=== PATIENT | female | born 1980 | race Two or more races ===

== ENCOUNTER → 2024-12-04 | Outpatient (CLI) | payer MEDICAID, SELFPAY ==
--- NOTE | 2024-12-04 13:00 | XR_ITS ---
Examination: Transvaginal ultrasound of the pelvis, complete Technique: Transvaginal sonographic images pelvis performed using taylor scale imaging Exam date and time: December 04, 2024 1335 hours INDICATIONS: History ovarian cystic disease FINDINGS: Uterus 7.1 cm endometrial stripe 0.8 cm Anterior uterine body area of fibroid degeneration 18 x 16 x 19 mm No intrauterine gestation Right ovary obscured by bowel gas Left ovary 2.0 cm arterial flow IMPRESSION: Small area of uterine fibroid degeneration as above, consider 6 month follow-up transvaginal pelvic sonography .
== END | disposition home or self-care (01) ==
PROVIDERS: PCP Internal Medicine
DX: D25.9 Leiomyoma of uterus, unspecified (principal)
CPT/HCPCS: 76830

== ENCOUNTER → 2024-12-04 | Outpatient (CLI) | payer MEDICAID, SELFPAY ==
--- NOTE | 2024-12-04 13:30 | XR_ITS ---
Examination: Breast ultrasound complete, bilateral Date and time of exam: December 04, 2024 1319 hours INDICATIONS: Palpable mass 10:00 position right breast on clinical breast examination by provider this month Technique: Real-time grayscale ultrasonographic imaging bilateral breasts, including all 4 quadrants as well as nipple retroareolar and axillary regions. Findings: No cystic or solid mass involving either breast IMPRESSION: BI-RADS Category 1: Negative study
--- NOTE | 2024-12-04 14:30 | XR_ITS ---
Examination: Diagnostic digital mammography, bilateral Computer aided detection 3-D breast Tomosynthesis, bilateral Date and time of exam: December 04, 2024 1005 hours Technique: Nonmagnified MLO, CC views of the breasts to been obtained, reconstructed from 3-D Tomosynthesis images. R2 computer aided detection program utilized for evaluation of suspicious masses and/or abnormal calcifications. 3-D Tomosynthesis images obtained. Findings: The breasts are heterogeneously dense, which may obscure small masses 4 mm focal asymmetry retroareolar region left breast Impression: BI-RADS Category 0: Incomplete: Need additional imaging evaluation 4 mm focal asymmetry retroareolar region left breast, recommend follow-up spot tomographic views of this asymmetry as well as left breast sonography to complete the workup.
== END | disposition home or self-care (01) ==
PROVIDERS: PCP Internal Medicine; Referring Provider Nurse Practitioner Family; Visit Provider Nurse Practitioner Family
DX: R92.8 Other abnormal and inconclusive findings on diagnostic imaging of breast (principal); N64.89 Other specified disorders of breast
CPT/HCPCS: 76641; 77062; 77066; G0279